=== PATIENT | male | born 1935 | race Caucasian/White ===

== ENCOUNTER → 2017-07-12 | Outpatient (CLI) | payer MEDICARE, OTHER | END | disposition home or self-care (01) | LOC: US 15:26 | DX: I73.9 Peripheral vascular disease, unspecified (principal) | CPT/HCPCS: 93925 ==

== ENCOUNTER → 2017-09-26 | Outpatient (CLI) | payer MEDICARE, OTHER | END | disposition home or self-care (01) | LOC: MRI 11:24 | DX: M43.06 Spondylolysis, lumbar region (principal); M48.061 Spinal stenosis, lumbar region without neurogenic claudication; M51.36 Other intervertebral disc degeneration, lumbar region; M79.2 Neuralgia and neuritis, unspecified; M99.83 Other biomechanical lesions of lumbar region; M79.604 Pain in right leg; M79.605 Pain in left leg; M25.48 Effusion, other site | CPT/HCPCS: 72148 ==

== ENCOUNTER → 2019-05-19 | Outpatient (CLI) | payer MEDICARE, OTHER ==
[~2019-05-19] MED LIST: ATEN50TA PO; DILT180C2 PO; LEVO25TA4 PO; LOSA100T14 PO
--- NOTE | 2019-05-19 17:06 | KCIC ---
MRI of the lumbar spine without contrast 05/19/2019 CLINICAL HISTORY: Low back pain with progressing bilateral leg pain, right greater than left. TECHNIQUE: Unenhanced T1-weighted and T2-weighted sagittal and axial and inversion recovery sagittal images of the lumbar spine were obtained. FINDINGS: Comparison study is dated 09/26/2017. Minimal S-shaped curvature of the thoracolumbar spine is seen. Degenerative signal changes are seen involving all of the disks of the lumbar spine. Degenerative signal changes are seen within the marrow surrounding these discs. The conus medullaris is normal morphology, position, and signal characteristics. At the L1-2 disc space there is a mild to moderate generalized disc bulge. This is eccentric to the right. Degenerative changes are seen involving the facet joints bilaterally. There are small facet joint effusions bilaterally. There is mild to moderate ligamentum flavum hypertrophy bilaterally. There is prominence of the posterior epidural fat. These findings when combined result in mild central spinal canal stenosis. No neural foraminal stenosis is seen. At the L2-3 disc space there is a mild to moderate generalized disc bulge. This is eccentric to the left. Degenerative changes are seen involving the facet joints bilaterally. There is moderate ligamentum flavum hypertrophy bilaterally. There is a small to moderate-sized facet joint effusion. These findings when combined result in mild to moderate central spinal canal stenosis. No neural foraminal stenosis is seen. At the L3-4 disc space there is a moderate generalized disc bulge. Degenerative changes are seen involving the facet joints bilaterally. There is moderate ligamentum flavum hypertrophy bilaterally. There are small facet joint effusions bilaterally. These findings when combined result in moderate central spinal canal stenosis. No neural foraminal stenosis is seen. At the L4-5 disc space there is a mild to moderate generalized disc bulge which is eccentric to the left. Degenerative changes are seen involving the facet joints bilaterally. There is moderate ligamentum flavum hypertrophy bilaterally. These findings when combined result in mild to moderate left greater than right central spinal canal stenosis. No neural foraminal stenosis is seen. At the L5-S1 disc space there is a mild generalized disc bulge. Degenerative changes are seen involving the facet joints bilaterally. There is mild ligamentum flavum hypertrophy bilaterally. These findings when combined do not result in significant central spinal canal or neural foraminal stenosis. The degenerative changes have progressed since the previous examination. IMPRESSION: The changes of degenerative disc disease are seen throughout the lumbar spine. These findings result in mild central spinal canal stenosis at L1-2, mild to moderate central spinal canal stenosis at L2-3, moderate central spinal canal stenosis at L3-4 and mild to moderate left greater than right central spinal canal stenosis at L4-5. Electronically signed by: Imtiaz Fulton MD (05/19/2019 5:03 PM) [facility]
== END | disposition home or self-care (01) ==
LOC: KCIC MRI 15:02
PROVIDERS: ATTEND Family Medicine
DX: M47.816 Spondylosis without myelopathy or radiculopathy, lumbar region (principal); M51.26 Other intervertebral disc displacement, lumbar region; M48.061 Spinal stenosis, lumbar region without neurogenic claudication; M43.8X5 Other specified deforming dorsopathies, thoracolumbar region; M51.36 Other intervertebral disc degeneration, lumbar region
CPT/HCPCS: 72148

== ENCOUNTER → 2019-06-11 | Outpatient (CLI) | payer MEDICARE, OTHER ==
[~2019-06-11] MED LIST changes: +GABA-585 PO; +IOHEXOL 180 MG/ML 10 ML VIAL. ONE; +methylPREDNISolone ACETATE 40 MG/ML VIAL. ONE; +methylPREDNISolone ACETATE 80 MG/ML VIAL. ONE
--- NOTE | 2019-06-11 13:51 | PAIN ---
DATE OF SERVICE: 06/11/2019 INITIAL CONSULTATION FOR PAIN CLINIC CHIEF COMPLAINT: Low back and bilateral lower extremity pain. HISTORY OF PRESENT ILLNESS: This is an 83-year-old male who presents with history of pain for about 6 months, not a result of any specific injury or action. He is aware of pain in the low back, bilateral lower extremities, posterior gluteus, posterior thighs, posterior calves, lateral thighs, anterior thighs, medial thighs, medial lower legs as well to the ankles bilaterally. The patient reports it is essentially equal but right slightly worse than the left. No specific injury or action he is aware of. The patient describes the pain as shooting in the low back into the lower extremities, changes during the day with activity, worse with walking, standing, changing positions, better with sitting or lying down, but does awaken him from sleep about 3 times at night. The patient reports it as cramping as well in the back. The patient reports it does not affect his bowel or bladder control and does not affect his ability to walk significantly, but lying down is his chief complaint when it is disturbing his sleep. The patient reports he generally sleeps on his right side but he has been unable to because of the pain in the right hips and legs. The patient describes his disability rating from 0-10, 10 being the worst, of a 4 with family home responsibilities, social activity, recreation, occupation, and 0 with sexual behavior, self-care and life support activities. The patient has not had any formal therapy at this time. He is doing some stretching on his own, but no formal physical therapy currently. No chiropractic treatments or other modalities recently. The patient is taking [id number] Advil, which helps by only about 20%. The patient did have MRI scan through his primary physician of the lumbar spine showing degenerative disk disease throughout the lumbar spine with mild central spinal canal stenosis at L1-L2, juwn-cz-[id number] central stenosis at L2-L3, moderate central spinal stenosis at L3-L4 and qlie-oh-qitfnbxf left greater than right central spinal canal stenosis at L4-L5. The patient reports no loss of motor function, but significant fatigability in both the lower extremities, especially with standing or walking more than 10-15 minutes. PAST MEDICAL HISTORY: Significant for arthritis and cigarette smoking, which he quit 25 years ago. Otherwise, been in fairly good health. PREVIOUS SURGERY: Include appendectomy and tonsillectomy. CURRENT MEDICATIONS: Well documented on the patient's chart. ALLERGIES: The patient has no known drug allergies. FAMILY HISTORY: Significant for no major medical problems or conditions that he lists. SOCIAL HISTORY: The patient does not drink alcohol, does not smoke, quit many years ago. Denies any illegal, illicit or recreational drugs. Single , lives locally in [place], [place]. Currently he is retired. REVIEW OF SYSTEMS: The patient's review of systems is positive for those items mentioned in history of present illness. All systems reviewed and otherwise negative. It is complete, full and well documented on the patient's chart. PHYSICAL EXAMINATION: VITAL SIGNS: The patient's blood pressure 136/59, pulse 59, respirations 18, temperature is 97.9 degrees Fahrenheit, height is 6 feet 5 inches, weight is 218 pounds. GENERAL: The patient is awake, alert, oriented, appropriate, very pleasant demeanor. HEENT: Shows normocephalic, atraumatic. Extraocular movements are intact and symmetrical. Oral cavity, mucous membranes moist and pink. Dentition is intact. NECK: Shows anterior throat supple without palpable lymphadenopathy noted. Swallow reflex symmetrical. CHEST: Shows normal on inspection. Breath sounds are clear bilaterally. HEART: Shows S1, S2 clear. No murmurs auscultated. ABDOMEN: Soft, nontender, nondistended. No palpable organomegaly is noted. No rebound or guarding demonstrated. BACK: Shows spine grossly in the midline. Normal appearing thoracic kyphosis and minor flattening of lumbar lordotic curvature. Lumbar paraspinous muscle shows symmetrical on inspection, with palpation shows some mild tenderness throughout the upper, middle and lower distribution of paraspinous muscles, but only mildly without atrophy, hypertrophy, no trigger points, no asymmetry, no atrophy or hypertrophy. The patient shows no tenderness over the spinous processes, sacrum or sacroiliac regions bilaterally. The patient has full rotational motion of lumbar spine, both laterally greater than 10 degrees right and left as well as extension greater than 10 degrees, forward flexion 45 degrees without significant pain reported. LOWER EXTREMITIES: Deep tendon reflexes at 1+/4 in the patellar and tendo calcaneus tendons are equal. Motor exam is approximately 4 on a scale of 5, but symmetrical with dorsiflexion, extension, quadriceps and hamstring flexion, right and left. Straight leg raising noted to be negative for reproduction of radicular symptoms bilaterally. Gaenslen's and Twan's maneuvers are negative bilaterally as well. Peripheral pulses are 1+ posterior tibia. No peripheral edema is noted bilaterally. The patient is able to stand, stand on his toes without significant difficulty or loss of balance, walks with a normal-appearing gait, does not appear to favor the right or left lower extremity significantly. SKIN: The patient's skin shows warm and dry, good turgor. No edema. No sores, rashes or bruising throughout. IMPRESSION: 1. This is an 83-year-old male with approximate 6-month history of increasing pain, low back, bilateral lower extremities in a radicular fashion. 2. MRI scan of lumbar spine as noted. 3. Arthritis. PLAN: Options were discussed with the patient including conservative medical managements, physical therapies and interventional techniques. He would like to pursue interventional techniques. We discussed a lumbar epidural steroid injection using description as well as anatomical models to describe the procedure. Risks were then discussed including, but not limited to bleeding, infection, possibility of epidural hematoma, subsequent neurological compromise, dural puncture, headaches, spinal cord and/or nerve damage, side effects of steroid medication and poor results regarding pain control. The patient understands and wished to proceed. The patient will return to clinic in approximately 2 weeks for followup. He was counseled as to return appointment, activity level and side effects to be aware of. DIAGNOSES: Lumbar radiculopathy with lumbar degenerative disk disease and lumbar spinal stenosis. PROCEDURE: Lumbar epidural steroid injection, translaminar approach at L4-L5 level using C-arm fluoroscopic guidance under sterile prep and drape using local anesthetic. MEDICATION INJECTED: A total of 120 mg Depo-Medrol plus 10 mL of preservative-free normal saline and 2 mL of contrast. CONDITION AT DISCHARGE: Stable. The patient tolerated procedure well, had no complications. ANDRES BETTS MD DR: EDWAR/emile JOB#: [id number] / [id number] MELODY Clemente MD
== END | disposition home or self-care (01) ==
LOC: PNCL 09:49
PROVIDERS: ATTEND Anesthesiology
DX: M51.16 Intervertebral disc disorders with radiculopathy, lumbar region (principal); M48.061 Spinal stenosis, lumbar region without neurogenic claudication; M19.90 Unspecified osteoarthritis, unspecified site; Z90.49 Acquired absence of other specified parts of digestive tract; Z98.890 Other specified postprocedural states; Z87.891 Personal history of nicotine dependence
CPT/HCPCS: 62323; J1030; J1040; Q9965

== ENCOUNTER → 2019-06-25 | Outpatient (CLI) | payer MEDICARE, OTHER ==
[~2019-06-25] MED LIST changes: -IOHEXOL 180 MG/ML 10 ML VIAL. ONE; -methylPREDNISolone ACETATE 40 MG/ML VIAL. ONE; -methylPREDNISolone ACETATE 80 MG/ML VIAL. ONE
--- NOTE | 2019-06-25 13:07 | PAIN ---
DATE OF SERVICE: 06/25/2019 PROGRESS NOTE FOR PAIN CLINIC DIAGNOSES: Lumbar radiculopathy with lumbar degenerative disk disease and lumbar spinal stenosis. HISTORY OF PRESENT ILLNESS: The patient is an 83-year-old male who returns for followup status post lumbar epidural steroid injection x 1. The patient reports about 90% improvement in the low back and bilateral lower extremities. The patient reports it is currently still at that level. The patient reports he has been increasing his activity with greater ease and comfort, doing greater distance walking, traveling with greater ease and comfort, doing household activities with greater ease. The patient reports he is very pleased with his progress, sleeping well at night, which was a big problem with him in the past with his legs hurting, but they are no longer keeping him from sleep. The patient reports he is sleeping 7-8 hours at night, does not awaken him from sleep. He is very pleased with his progress. The patient reports no new motor or sensory deficits, no new changes. The patient reports this pain is a 3 on a scale of 10 at its worst, 1 on average and 1 at its least and is a 1 today. The patient reports some aching and dull pain in the low back, only shooting occasionally in the lower extremities bilaterally, but very minimal overall. The patient reports no new motor or sensory deficits, no bowel or bladder incontinence or other complaints. PHYSICAL EXAMINATION: VITAL SIGNS: The patient's blood pressure 171/77, pulse 57, respirations 16, temperature 98.0 degrees Fahrenheit. GENERAL: The patient is awake, alert, oriented, appropriate, very pleasant demeanor. HEENT: Shows normocephalic, atraumatic. Extraocular movements are intact and symmetrical. Oral cavity: Mucous membranes moist and pink. NECK: Shows anterior throat supple without palpable lymphadenopathy noted. Swallow reflex symmetrical. CHEST: Shows normal on inspection. Breath sounds are clear bilaterally. HEART: Shows S1, S2 clear. ABDOMEN: Soft, nontender, nondistended. BACK: Shows spine grossly in the midline. There is a normal-appearing thoracic kyphosis, some minor flattening of lumbar lordotic curvature. Lumbar paraspinous muscle shows symmetrical on inspection, on palpation shows some moderate tenderness diffusely bilaterally, but only diffusely without significant radiation. The patient's back shows good rotational motion both laterally as well as extension and flexion without significant increase in pain. EXTREMITIES: Lower extremities show deep tendon reflexes at 1+ in the patellar and tendo calcaneus tendons are equal. Motor exam is strong with approximately 4 on a scale of 5, but symmetrical dorsiflexion, extension, quadriceps and hamstring flexion. Peripheral pulses are 1+ posterior tibia. No peripheral edema is noted. Options were discussed with the patient. The patient's old chart was reviewed as his current medication regimen updated. Current review of systems updated today as well. We will hold on any further injections at this time as the patient is doing quite a better. I would like to wait and see how he does. He would like to hold on any further injections. The patient was encouraged to increase activity as tolerated and will have him follow up at this time on as needed basis. ANDRES BETTS MD DR: EDWAR/emile JOB#: [id number] / [id number]
== END ==
LOC: PNCL 10:32
PROVIDERS: ATTEND Anesthesiology
DX: M51.16 Intervertebral disc disorders with radiculopathy, lumbar region (principal); M48.061 Spinal stenosis, lumbar region without neurogenic claudication
CPT/HCPCS: G0463

== ENCOUNTER 2021-10-12 16:04 | Inpatient (IN) | payer MEDICARE, OTHER ==
[2021-10-12] VITALS (9 sets, daily range): BP systolic 112–182; BP diastolic 46–76
[~2021-10-12] VITALS: Ht 193 cm; Wt 83.0 kg
--- NOTE | 2021-10-12 16:09 | PHYS DOC ---
General Adult HPI: HPI: Patient is an 86 year old male brought in by private vehicle with his granddaughter for report of 3 days of intermittent dizziness and dyspnea. He reports some generalized fatigue. He denies chest pain. He denies fall, head injury or syncope. He denies abdominal pain, nausea, vomiting or diarrhea. No previous similar symptoms. His granddaughter convinced him to go seek care at his primary care doctor's office today, he was seen by the PA at Dr. Mejias's office, an EKG was performed which was abnormal and changed from his baseline. He was sent by private vehicle with his granddaughter. On arrival here, his EKG demonstrates ST elevation in the inferior and lateral leads. The patient has no known history of cardiac issues. He reportedly has a history of hypothyroidism and takes levothyroxine. He has not previously seen a laboratory coordinator. Review of Systems: Review of Systems: Constitutional: Denies fever or chills. [] HENT: Denies nasal congestion or sore throat. [] Respiratory: He does report dyspnea. Denies cough or hemoptysis. Cardiovascular: Denies chest pain or palpitations. Denies syncope. GI: Denies abdominal pain, nausea, vomiting Musculoskeletal: Denies back pain or joint pain. [] Integument: Denies rash. [] Neurologic: Denies headache, focal weakness or sensory changes. He reports dizziness, denies syncope, head injury or fall. Psychiatric: Denies depression or anxiety. [] Heart Score: C/O Chest Pain: No HEART Score for Chest Pain: HEART Score for Chest Pain Response (Comments) Value History Highly Suspicious [address] Depression 2 Age > 65 2 Risk Factors 1 or 2 Risk Factors 1 Troponin >3 x Normal Limit 2 Total 9 Risk Factors: Risk Factors: DM, Current or recent (<one month) smoker, HTN, HLP, family history of CAD, obesity. Risk Scores: Score 0 - 3: 2.5% MACE over next 6 weeks - Discharge Home Score 4 - 6: 20.3% MACE over next 6 weeks - Admit for Clinical Observation Score 7 - 10: 72.7% MACE over next 6 weeks - Early Invasive Strategies Allergies: Allergies: Allergies Coded Allergies Type Severity Reaction Last Updated Verified No Known Drug Allergies 11/16/15 No Physical Exam: PE: Constitutional: Well developed, well nourished, no acute distress, non-toxic appearance. [] HENT: Normocephalic, atraumatic, no facial or oral trauma noted. Mucous membranes are moist Eyes: Conjunctiva normal, no discharge. [] Neck: Normal range of motion, no tenderness, supple, no stridor. Trachea is midline. No JVD. Cardiovascular:Heart rate regular rhythm, was 2 radial and +2 posterior tibial pulses bilaterally. Lungs & Thorax: Bilateral breath sounds clear to auscultation, tachypnea, no rales, rhonchi or wheezes. No respiratory distress Abdomen: Abdomen is soft, nondistended, nontender to palpation. No palpable masses, no palpable pulsatile mass, no evidence of trauma. Skin: Warm, dry, no erythema, no rash. [] Back: Full range of motion Extremities: No tenderness, no cyanosis, no clubbing, ROM intact, 1+ bilateral, symmetric lower extremity edema. No calf tenderness Neurologic: Alert and oriented X 3, normal motor function, normal sensory function, no focal deficits noted. [] Psychologic: Affect normal, judgement normal, mood normal. He is pleasant and cooperative. EKG: EKG: EKG is interpreted at 1614 Rhythm is sinus Rate is 72 bpm Elberta is left STEMI noted--ST elevation II, III, aVF, V6 Radiology/Procedures: Radiology/Procedures: IMAGING REPORT Signed PATIENT: BART PHELAN ACCOUNT: [id number] : 1935 LOCATION: ER AGE: 86 SEX: M EXAM STATUS: REG ER ORD. PHYSICIAN: KELLI ODELL DO REASON: dyspnea PROCEDURE: PORTABLE CHEST 1V XR CHEST 1V 10/12/2021 4:32 PM INDICATION: Dyspnea COMPARISON: None available TECHNIQUE: Portable frontal view of the chest is provided. FINDINGS: The cardiomediastinal silhouette is within normal limits. Lungs are clear. There are no significant pleural effusions. There is no pulmonary vascular congestion. No pneumothorax. Eccentric pacer leads are identified along the ventral chest. No suspicious osseous abnormality. IMPRESSION: There is no acute cardiopulmonary process. Electronically signed by: Brice Elias MD (10/12/2021 4:44 PM) [facility] DICTATED and SIGNED BY: BRICE ELIAS MD DATE: 10/12/21 1643 Course & Med Decision Making: Course & Med Decision Making Pertinent Labs and Imaging studies reviewed. (See chart for details) I contacted Dr. Tran of cardiology. EKG findings concerning for inferolateral ST elevation CA. Oral aspirin is ordered. IV heparin boluses ordered. Dr. Tran came to the patient's bedside, agreed with the plan to proceed with [facility] Supervisor and treatment of ST elevation CA. I discussed the findings and plan of care with the patient and his granddaughter. He is comfortable with the plan for admission. I spoke with Dr. Mejias, the patient's primary care physician, informed him of all of the details of the patient's ED course, presentation, laboratory exams, vital signs, and the plan for proceeding to the [facility] with cardiology. He accepts the patient for admission. Dragon Disclaimer: Dragon Disclaimer: This electronic medical record was generated, in whole or in part, using a voice recognition dictation system. Departure Departure Impression: Primary Impression: ST elevation CA (STEMI) Qualified Codes: I21.3 - ST elevation (STEMI) myocardial infarction of unspecified site Disposition: ADMITTED INPATIENT Admitting Physician: Melody Mejias Condition: GUARDED Referrals: MELODY MEJIAS MD (PCP) KELLI ODELL DO Oct 12, 2021 16:09
[2021-10-12] MEDS ORDERED: HEPARIN for IV BOLUS 10,000 UNIT/10 ML VIAL. ONE (16:27)
[2021-10-12 16:30] LABS: BASO # 0.1 x10^3/uL (0.0-0.2); BASO % 2 % (0-3); EOS # 0.1 x10^3/uL (0.0-0.7); EOS % 1 % (0-3); HEMATOCRIT 44.8 % (39.0-53.0); HEMOGLOBIN 15.1 g/dL (13.0-17.5); LYMPH # 1.9 x10^3/uL (1.0-4.8); LYMPH % 24 % (24-48); MEAN CORPUSCULAR HEMOGLOBIN 29 pg (25-35); MEAN CORPUSCULAR HGB CONC 34 g/dL (31-37); MEAN CORPUSCULAR VOLUME 86 fL (79-100); MONO # 0.9 x10^3/uL (0.0-1.1); MONO % 12 % (0-9); NEUT # 4.9 x10^3/uL (1.8-7.7); NEUT % 62 % (31-73); PLATELET COUNT 179 x10^3/uL (140-400); RED BLOOD COUNT 5.24 x10^6/uL (4.30-5.70); RED CELL DISTRIBUTION WIDTH 14.2 % (11.5-14.5); WHITE BLOOD COUNT 7.9 x10^3/uL (4.0-11.0)
[2021-10-12] MEDS ORDERED: ASPIRIN CHEWABLE 81 MG TABLET. PO ONE (16:30)
[2021-10-12] MEDS ORDERED: HEPARIN for IV BOLUS 10,000 UNIT/10 ML VIAL. IV ONE (16:30)
[2021-10-12] MEDS ORDERED: MIDAZOLAM HCL/PF 2 MG/2 ML VIAL. ONE (16:40)
[2021-10-12] MEDS ORDERED: fentaNYL PF VIAL 100 MCG/2 ML VIAL ONE (16:40)
--- NOTE | 2021-10-12 16:46 | RAD ---
XR CHEST 1V 10/12/2021 4:32 PM INDICATION: Dyspnea COMPARISON: None available TECHNIQUE: Portable frontal view of the chest is provided. FINDINGS: The cardiomediastinal silhouette is within normal limits. Lungs are clear. There are no significant pleural effusions. There is no pulmonary vascular congestion. No pneumothora x. Eccentric pacer leads are identified along the ventral chest. No suspicious osseous abnormality. IMPRESSION: There is no acute cardiopulmonary process. Electronically signed by: Matilda Varner MD (10/12/2021 4:44 PM) [facility]
[2021-10-12 16:52] LABS: CREATININE 1.7 mg/dL (0.7-1.3); GFR 38.5; POTASSIUM 3.9 mmol/L (3.5-5.1)
[2021-10-12] MEDS ORDERED: LIDOCAINE 1% Multi-Dose 20 ML VIAL. ONE (16:52)
[2021-10-12] MEDS ORDERED: IODIXANOL 320 MG/ML 100 ML VIAL. ONE ×2 (16:52→17:29)
[2021-10-12 16:58] LABS: ALBUMIN 3.8 g/dL (3.4-5.0); ALBUMIN/GLOBULIN RATIO 0.9 (1.0-1.7); MAGNESIUM 2.1 mg/dL (1.8-2.4); TOTAL BILIRUBIN 1.6 mg/dL (0.2-1.0)
--- NOTE | 2021-10-12 17:04 | PDOC2 ---
CONSULT Date of Consult Date of Consult DATE: 10/12/21 TIME: 17:04 Reason for Consult Reason for Consult: Acute STEMI Referring Physician Referring Physician: Dr. Patel Identification/Chief Complaint Chief Complaint Shortness of breath Source Source: Patient History of Present Illness Reason for Visit: 86-year-old male presented with 2 to 3-day history of intermittent episodes of dyspnea, worse with exertion and associated with dizziness. He denied any chest pain as such. He also denied any orthopnea/PND, palpitations or syncope. He was seen in our office last year for an episode of near syncope and bradycardia that improved after stopping beta-blockers. Event monitor recording did not show any significant bradycardia or pauses. EKG showed inferolateral ST elevations prompting activation of code STEMI. Past Medical History Past Medical History Hypothyroidism Chronic kidney disease Hypertension Past Surgical History Past Surgical History Appendectomy Family History Family History Not contributory due to his advanced age Social History Social History Patient denied any smoking, alcohol or drug use Current Problem List Problem List Problems Medical Problems: (1) ST elevation SC (STEMI) Status: Acute Current Medications Current Medications Current Medications Aspirin (Aspirin Chewable) 324 mg 1X ONCE PO Last administered on 10/12/21at 16:27; Start 10/12/21 at 16:30; Stop 10/12/21 at 16:31; Status DC Heparin Sodium (Porcine) (Heparin Sodium) 4,000 unit 1X ONCE IV Last administered on 10/12/21at 16:32; Start 10/12/21 at 16:30; Stop 10/12/21 at 16:31; Status DC Heparin Sodium (Porcine) (Heparin Sodium) 10,000 unit STK-MED ONCE .ROUTE ; Start 10/12/21 at 16:27; Stop 10/12/21 at 16:28; Status DC Fentanyl Citrate (Fentanyl 2ml Vial) 100 mcg STK-MED ONCE .ROUTE ; Start at 16:40; Stop 10/12/21 at 16:40; Status DC Midazolam HCl (Versed) 2 mg STK-MED ONCE .ROUTE ; Start 10/12/21 at 16:40; Stop 10/12/21 at 16:41; Status DC Iodixanol (Visipaque 320) 100 ml STK-MED ONCE .ROUTE ; Start 10/12/21 at 16:52; Stop 10/12/21 at 16:53; Status DC Lidocaine HCl (Lidocaine 1% 20ml Vial) 20 ml STK-MED ONCE .ROUTE ; Start 10/12/21 at 16:52; Stop 10/12/21 at 16:53; Status DC Heparin Sodium/ Sodium Chloride 1,000 ml @ As Directed STK-MED ONCE .ROUTE ; Start 10/12/21 at 16:53; Stop 10/12/21 at 16:53; Status DC Active Scripts Active Reported Gabapentin (Gabapentin) 100 Mg Capsule 200 Mg PO HS Levothyroxine Sodium 25 Mcg Tablet 1 Tab PO Allergies Allergies: Coded Allergies: No Known Drug Allergies (Unverified , 10/12/21) ROS PSYCHOLOGICAL ROS: No: Hallucinations Eyes: No Loss of vision HEENT: No: Epistaxis Respiratory: YES: Shortness of breath; No: Hemoptysis Cardiovascular: No Chest Pain Gastrointestinal: No Vomiting, No Diarrhea Genitourinary: No Hematuria Neurological: Yes Dizziness; No Seizures Skin: No Rash Physical Exam General: Alert, Oriented X3 HEENT: Atraumatic Lungs: Clear to auscultation Heart: Regular rate Abdomen: Soft Extremities: No edema Neuro: Normal speech Psych/Mental Status: Mood NL Vitals VITALS Vital Signs Date Time Temp Pulse Resp B/P (MAP) Pulse Ox O2 Delivery O2 Flow Rate FiO2 10/12/21 16:52 83 21 164/72 (102) 100 Room Air 10/12/21 16:05 97.8 97.8 Labs Labs Laboratory Tests Test 10/12/21 16:20 White Blood Count 7.9 x10^3/uL (4.0-11.0) Red Blood Count 5.24 x10^6/uL (4.30-5.70) Hemoglobin 15.1 g/dL (13.0-17.5) Hematocrit 44.8 % (39.0-53.0) Mean Corpuscular Volume 86 fL (79-100) Mean Corpuscular Hemoglobin 29 pg (25-35) Mean Corpuscular Hemoglobin Concent 34 g/dL (31-37) Red Cell Distribution Width 14.2 % (11.5-14.5) Platelet Count 179 x10^3/uL (140-400) Neutrophils (%) (Auto) 62 % (31-73) Lymphocytes (%) (Auto) 24 % (24-48) Monocytes (%) (Auto) 12 % (0-9) Eosinophils (%) (Auto) 1 % (0-3) Basophils (%) (Auto) 2 % (0-3) Neutrophils # (Auto) 4.9 x10^3/uL (1.8-7.7) Lymphocytes # (Auto) 1.9 x10^3/uL (1.0-4.8) Monocytes # (Auto) 0.9 x10^3/uL (0.0-1.1) Eosinophils # (Auto) 0.1 x10^3/uL (0.0-0.7) Basophils # (Auto) 0.1 x10^3/uL (0.0-0.2) Sodium Level 135 mmol/L (136-145) Potassium Level 3.9 mmol/L (3.5-5.1) Chloride Level 99 mmol/L (98-107) Carbon Dioxide Level 29 mmol/L (21-32) Anion Gap 7 (6-14) Blood Urea Nitrogen 23 mg/dL (8-26) Creatinine 1.7 mg/dL (0.7-1.3) Estimated GFR (Cockcroft-Gault) 38.5 BUN/Creatinine Ratio 14 (6-20) Glucose Level 109 mg/dL (70-99) Calcium Level 9.0 mg/dL (8.5-10.1) Magnesium Level 2.1 mg/dL (1.8-2.4) Total Bilirubin 1.6 mg/dL (0.2-1.0) Aspartate Amino Transf (AST/SGOT) 73 U/L (15-37) Alanine Aminotransferase (ALT/SGPT) 16 U/L (16-63) Alkaline Phosphatase 110 U/L (46-116) Troponin I High Sensitivity 29082 ng/L (4-75) TK-Znn-D-Type Natriuretic Peptide 81322 pg/mL (0-449) Total Protein 8.0 g/dL (6.4-8.2) Albumin 3.8 g/dL (3.4-5.0) Albumin/Globulin Ratio 0.9 (1.0-1.7) Lipase 37 U/L (73-393) Laboratory Tests Test 10/12/21 16:20 White Blood Count 7.9 x10^3/uL (4.0-11.0) Red Blood Count 5.24 x10^6/uL (4.30-5.70) Hemoglobin 15.1 g/dL (13.0-17.5) Hematocrit 44.8 % (39.0-53.0) Mean Corpuscular Volume 86 fL (79-100) Mean Corpuscular Hemoglobin 29 pg (25-35) Mean Corpuscular Hemoglobin Concent 34 g/dL (31-37) Red Cell Distribution Width 14.2 % (11.5-14.5) Platelet Count 179 x10^3/uL (140-400) Neutrophils (%) (Auto) 62 % (31-73) Lymphocytes (%) (Auto) 24 % (24-48) Monocytes (%) (Auto) 12 % (0-9) Eosinophils (%) (Auto) 1 % (0-3) Basophils (%) (Auto) 2 % (0-3) Neutrophils # (Auto) 4.9 x10^3/uL (1.8-7.7) Lymphocytes # (Auto) 1.9 x10^3/uL (1.0-4.8) Monocytes # (Auto) 0.9 x10^3/uL (0.0-1.1) Eosinophils # (Auto) 0.1 x10^3/uL (0.0-0.7) Basophils # (Auto) 0.1 x10^3/uL (0.0-0.2) Sodium Level 135 mmol/L (136-145) Potassium Level 3.9 mmol/L (3.5-5.1) Chloride Level 99 mmol/L (98-107) Carbon Dioxide Level 29 mmol/L (21-32) Anion Gap 7 (6-14) Blood Urea Nitrogen 23 mg/dL (8-26) Creatinine 1.7 mg/dL (0.7-1.3) Estimated GFR (Cockcroft-Gault) 38.5 BUN/Creatinine Ratio 14 (6-20) Glucose Level 109 mg/dL (70-99) Calcium Level 9.0 mg/dL (8.5-10.1) Magnesium Level 2.1 mg/dL (1.8-2.4) Total Bilirubin 1.6 mg/dL (0.2-1.0) Aspartate Amino Transf (AST/SGOT) 73 U/L (15-37) Alanine Aminotransferase (ALT/SGPT) 16 U/L (16-63) Alkaline Phosphatase 110 U/L (46-116) Troponin I High Sensitivity 32861 ng/L (4-75) ZZ-Jle-N-Type Natriuretic Peptide 69398 pg/mL (0-449) Total Protein 8.0 g/dL (6.4-8.2) Albumin 3.8 g/dL (3.4-5.0) Albumin/Globulin Ratio 0.9 (1.0-1.7) Lipase 37 U/L (73-393) Assessment/Plan Assessment/Plan 1. Acute inferolateral wall ST elevation myocardial infarction with probably la te presentation based on significantly elevated initial troponin level of greater than 16 K. He was chest pain-free on admission but continued to have ST elevations on EKG. 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 He underwent successful PCI/drug-eluting stent placement. Distal flow was consistent with late presentation. He also had borderline significant stenosis of his right coronary artery that was physiologically insignificant based on IFR measurement. Continue DAPT and monitor closely for arrhythmias. We will initiate statin therapy. Check 2D echo to assess LV systolic function. 2. Hypertension: Patient currently has borderline low blood pressure despite being off antihypertensives. 3. Chronic kidney disease: Monitor BUN/creatinine closely 4. Hypothyroidism: Continue levothyroxine Thank you for your consultation Total critical care time spent evaluating and managing patient 45 mins ANNIE MARIE MD Oct 12, 2021 17:04
--- NOTE | 2021-10-12 17:04 | PDOC ---
MODERATE SEDATION ASSESSMENT RISKS/ALTERNATIVES Risks/Alternatives Risks and alternatives of this type of sedation and procedure discussed with: RISK/ALTERNATIVES: Patient H & P ON CHART H & P H & P on chart and reviewed for co-morbid conditions and appropriate labs. H&P ON CHART: Yes STATUS PREG STATUS ASSESSED: N/A MEDS/ALLERGIES REVIEWED Meds/Allergies Reviewed Medications and Allergies including time and route of recently administered narcotics and sedatives. MEDS/ALLERGIES REVIEWED: Yes ASA RATING ASA RATING: II AIRWAY ASSESSMENT Airway Assessment Airway patency, oral function limitations, presence of caps, crowns, dentures, partials, and ability to extend neck assessed. AIRWAY ASSESSMENT: Yes MALLAMPATI SCORE MALLAMPATI SCORE: II PRE-SEDATION ASSESSMENT PRE-SEDATION ASSESSMENT: Yes ANNIE MARIE MD Oct 12, 2021 17:04
[2021-10-12] MEDS ORDERED: BIVALIRUDIN 250 MG VIAL. IV ONE ×4 (17:11→17:30)
[2021-10-12] MEDS ORDERED: NITROGLYCERIN 200 MCG/2 ML SYRINGE FOR CATH/VASC LAB. ONE ×2 (17:23→17:31)
[2021-10-12] MEDS ORDERED: MIDAZOLAM HCL/PF 2 MG/2 ML VIAL. IV ONE (17:30)
[2021-10-12] MEDS ORDERED: fentaNYL PF VIAL 100 MCG/2 ML VIAL IV ONE (17:30)
[2021-10-12] MEDS ORDERED: LIDOCAINE 2% Multi-Dose 20 ML VIAL. IJ ONE (17:30)
[2021-10-12] MEDS ORDERED: NITROGLYCERIN 200 MCG/2 ML SYRINGE FOR CATH/VASC LAB. IART ONE (17:30)
[2021-10-12] MEDS ORDERED: IODIXANOL 320 MG/ML 100 ML VIAL. IART ONE (17:30)
[2021-10-12] MEDS ORDERED: CONTRAST GIVEN. MC PRN (17:45)
[2021-10-12] MEDS ORDERED: CLOPIDOGREL BISULFATE 75 MG TABLET ONE (17:59)
[2021-10-12] MEDS: CARVEDILOL 6.25 MG TABLET. PO SCH (18:00)
[2021-10-12] MEDS ORDERED: ACETAMINOPHEN 325 MG TABLET. PO PRN (18:00)
[2021-10-12] MEDS ORDERED: NITROGLYCERIN SUBLINGUAL 0.4 MG BOTTLE OF 25. SL PRN (18:00)
--- NOTE | 2021-10-12 18:24 | NUR ---
Patient taken from Web [facility]ducer to 107. VS stable, no chest pain. Family in waiting room. All belongings with patient's family.
[2021-10-12] MEDS ORDERED: CLOPIDOGREL BISULFATE 75 MG TABLET PO ONE (18:30)
[2021-10-12] MEDS ORDERED: ATORVASTATIN CALCIUM 20 MG TABLET PO SCH (21:00)
[2021-10-13] VITALS (24 sets, daily range): BP systolic 80–141; BP diastolic 38–68
[2021-10-13 02:48] LABS: BACTERIA,URINE 0 /HPF (0-FEW); RBC,URINE RARE /HPF (0-2); WBC,URINE 0 /HPF (0-4)
[2021-10-13] MEDS: IV 1/2 NORMAL SALINE 1,000 ML IV SCH ×2 (06:43→14:00)
--- NOTE | 2021-10-13 07:23 | EKG ---
[facility] [address] [place] [address] Test Date: 2021-10-12 Test Time: 16:13:43 Pat Name: BART PHELAN Department: Room: [facility] Gender: M Production Team Member: : [id number] Requested By: KELLI ODELL Order Number: [id number] Reading MD: Gerson Tran Measurements Intervals [place] Rate: 72 P: 90 AK: 174 QRS: -39 QRSD: 86 T: 65 QT: 392 QTc: 431 Interpretive Statements SINUS RHYTHM ATRIAL PREMATURE COMPLEX(ES) ABNORMAL LEFT AXIS DEVIATION LOW LIMB LEAD VOLTAGE QRS(T) CONTOUR ABNORMALITY ACUTE INFEROLATERAL WALL STEMI Electronically Signed On 10-15-2021 21:35:28 CDT by Gerson Tran
--- NOTE | 2021-10-13 08:25 | PDOC ---
Provider Note Date of Service: DATE: 10/13/21 TIME: 08:25 Provider Note dictated Justifications for Admission Other Justification MELODY MEJIAS MD Oct 13, 2021 08:25
[2021-10-13] MEDS: ASPIRIN ENTERIC COATED 325 MG TABLET.DR. PO SCH (08:46)
[2021-10-13] MEDS: CLOPIDOGREL BISULFATE 75 MG TABLET PO SCH (08:46)
[2021-10-13] MEDS: CARVEDILOL 6.25 MG TABLET. PO SCH (08:47)
[2021-10-13] MEDS ORDERED: LEVOTHYROXINE 25 MCG TABLET. PO SCH (09:00)
[2021-10-13] MEDS: LEVOTHYROXINE 100 MCG TABLET PO SCH (09:18)
[2021-10-13 09:39] LABS: CALCIUM 8.2 mg/dL (8.5-10.1); CREATININE 1.6 mg/dL (0.7-1.3); GFR 41.3; MAGNESIUM 2.1 mg/dL (1.8-2.4); POTASSIUM 4.2 mmol/L (3.5-5.1)
[2021-10-13 09:48] LABS: CHOLESTEROL/HDL RATIO 2.5
--- NOTE | 2021-10-13 09:55 | HP ---
DATE OF SERVICE: 10/13/2021 ADMIT DATE: 10/12/2021 CHIEF COMPLAINT: Weakness. HISTORY OF PRESENT ILLNESS: An 81-year-old white male, who was seen in our office on the day of admission with 3-day history of generalized weakness without any other specific symptoms including chest pain, shortness of breath, sweating or any other obvious symptoms. He has never had any cardiovascular events before. EKG showed acute ST elevation in the inferior leads and he was sent to the ER and acute STEMI was diagnosed per repeat EKG. He was taken to the cardiac cath lab technologist per Dr. Tran and apparently a circumflex lesion was found and angioplasty and stented it and he is feeling better at this time. He states he felt that his feeling of weakness improved soon after a stent was placed. He has never had any cardiovascular events before and had no exercise symptoms or angina prior to this event. PAST MEDICAL HISTORY: MEDICATIONS: Only levothyroxine. PAST SURGICAL HISTORY: He has had routine surgeries, nothing else unusual. ALLERGIES: No allergies are known. SOCIAL HISTORY: He is . Nonsmoker, nondrinker. Physically active for his age. FAMILY HISTORY: Unremarkable. REVIEW OF SYSTEMS: No other known problems. OBJECTIVE: ENT: All within normal limits. NECK: No masses, nodes or bruits. LUNGS: Clear. CARDIOVASCULAR: Regular rate. No tachycardia or irregular beat. ABDOMEN: Soft, benign, nontender. EXTREMITIES: No edema. No active joint or skin lesions. Pulses distally are good. NEUROLOGIC: Physiologic and nonfocal. LABORATORY DATA: troponin consistent with acute VT. ASSESSMENT: Acute ST elevation myocardial infarction, inferior wall per EKG and circumflex lesion in the cardiac cath lab technologist. He is doing very well medically at this point post-acute. PLAN: TSH, lipid profile. Continue current meds including the addition of a statin. Echocardiogram is pending as well. MONICA/PADMAJA/TERRY DR: Josh TID: [id number]
[2021-10-13] MEDS ORDERED: LEVOTHYROXINE 100 MCG TABLET PO SCH (10:00)
--- NOTE | 2021-10-13 10:04 | NUR ---
SS following for discharge planning. SS reviewed pt chart and discussed with pt RN. Pt is from home and is currently on room air. Cardiology following. SS will continue to follow for discharge planning.
--- NOTE | 2021-10-13 11:57 | PDOC ---
DORYS MAC HOG STOMACH PREPARER 10/13/21 1157: CARDIO Progress Notes Date and Time Date of Service 10/13/2021 Time of Evaluation 1150 Subjective Subjective: No Chest Pain, No shortness of breath, No Palpitations Vitals Vitals Vital Signs Date Time Temp Pulse Resp B/P (MAP) Pulse Ox O2 Delivery O2 Flow Rate FiO2 10/13/21 11:00 77 21 103/42 (62) 100 Nasal Cannula 2.0 10/13/21 07:00 98.2 98.2 Weight Weight [ ] Input and Output Intake and Output Intake and Output 10/13/21 07:00 Intake Total 550 ml Output Total 0 ml Balance 550 ml Intake Oral 550 ml Output Urine Total 0 ml # Voids 8 Laboratory Labs Laboratory Tests Test 10/12/21 16:20 10/12/21 19:30 10/12/21 22:20 10/13/21 02:35 White Blood Count 7.9 x10^3/uL (4.0-11.0) Red Blood Count 5.24 x10^6/uL (4.30-5.70) Hemoglobin 15.1 g/dL (13.0-17.5) Hematocrit 44.8 % (39.0-53.0) Mean Corpuscular Volume 86 fL (79-100) Mean Corpuscular Hemoglobin 29 pg (25-35) Mean Corpuscular Hemoglobin Concent 34 g/dL (31-37) Red Cell Distribution Width 14.2 % (11.5-14.5) Platelet Count 179 x10^3/uL (140-400) Neutrophils (%) (Auto) 62 % (31-73) Lymphocytes (%) (Auto) 24 % (24-48) Monocytes (%) (Auto) 12 % (0-9) Eosinophils (%) (Auto) 1 % (0-3) Basophils (%) (Auto) 2 % (0-3) Neutrophils # (Auto) 4.9 x10^3/uL (1.8-7.7) Lymphocytes # (Auto) 1.9 x10^3/uL (1.0-4.8) Monocytes # (Auto) 0.9 x10^3/uL (0.0-1.1) Eosinophils # (Auto) 0.1 x10^3/uL (0.0-0.7) Basophils # (Auto) 0.1 x10^3/uL (0.0-0.2) Sodium Level 135 mmol/L (136-145) Potassium Level 3.9 mmol/L (3.5-5.1) Chloride Level 99 mmol/L (98-107) Carbon Dioxide Level 29 mmol/L (21-32) Anion Gap 7 (6-14) Blood Urea Nitrogen 23 mg/dL (8-26) Creatinine 1.7 mg/dL (0.7-1.3) Estimated GFR (Cockcroft-Gault) 38.5 BUN/Creatinine Ratio 14 (6-20) Glucose Level 109 mg/dL (70-99) Calcium Level 9.0 mg/dL (8.5-10.1) Magnesium Level 2.1 mg/dL (1.8-2.4) Total Bilirubin 1.6 mg/dL (0.2-1.0) Aspartate Amino Transf (AST/SGOT) 73 U/L (15-37) Alanine Aminotransferase (ALT/SGPT) 16 U/L (16-63) Alkaline Phosphatase 110 U/L (46-116) Troponin I High Sensitivity 20144 ng/L (4-75) 78597 ng/L (4-75) 26112 ng/L (4-75) HF-Jti-Y-Type Natriuretic Peptide 56247 pg/mL (0-449) Total Protein 8.0 g/dL (6.4-8.2) Albumin 3.8 g/dL (3.4-5.0) Albumin/Globulin Ratio 0.9 (1.0-1.7) Lipase 37 U/L (73-393) Urine Collection Type Unknown Urine Color (Auto) Light yellow Urine Turbidity Clear Urine pH (Auto) 6.0 (<5.0-8.0) Urine Specific [place] 1.036 (1.000-1.030) Urine Protein (Auto) Negative mg/dL (Negative) Urine Glucose (Auto)(UA) Negative mg/dL (Negative) Urine Ketones (Auto) Negative mg/dL (Negative) Urine Blood (Auto) Negative (Negative) Urine Nitrite Negative (Negative) Urine Bilirubin (Auto) Negative (Negative) Urine Urobilinogen (Auto) Normal mg/dL (Normal) Urine Leukocyte Esterase (Auto) Negative (Negative) Urine RBC Rare /HPF (0-2) Urine WBC 0 /HPF (0-4) Urine Squamous Epithelial Cells None /LPF Urine Bacteria 0 /HPF (0-FEW) Test 10/13/21 09:15 Sodium Level 136 mmol/L (136-145) Potassium Level 4.2 mmol/L (3.5-5.1) Chloride Level 102 mmol/L (98-107) Carbon Dioxide Level 28 mmol/L (21-32) Anion Gap 6 (6-14) Blood Urea Nitrogen 27 mg/dL (8-26) Creatinine 1.6 mg/dL (0.7-1.3) Estimated GFR (Cockcroft-Gault) 41.3 Glucose Level 101 mg/dL (70-99) Calcium Level 8.2 mg/dL (8.5-10.1) Magnesium Level 2.1 mg/dL (1.8-2.4) Triglycerides Level 52 mg/dL (0-150) Cholesterol Level 117 mg/dL (0-200) LDL Cholesterol, Calculated 61 mg/dL (0-100) VLDL Cholesterol, Calculated 10 mg/dL (0-40) Non-HDL Cholesterol Calculated 71 mg/dL (0-129) HDL Cholesterol 46 mg/dL (40-60) Cholesterol/HDL Ratio 2.5 Thyroid Stimulating Hormone (TSH) 0.474 uIU/mL (0.358-3.74) Physical Exam HEENT: Neck Supple W Full Motion Chest: Symmetric LUNGS: Clear to Auscultation Heart: S1S2, RRR (SR) Abdomen: Soft N/T Extremities: No Edema, No Calf Tenderness Neurology: alert, oriented, follow commands Other Exams right groin arteriotomy site intact, no erythema, swelling or hematoma. Neurovascular status to bilateral LE intact. Assessment Assessment 1. Acute inferolateral wall ST elevation myocardial infarction with probably late presentation based on significantly elevated initial troponin level of greater than 16 K. He was chest pain-free on admission but continued to have ST elevations on EKG. 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 He underwent successful PCI/drug-eluting stent placement. Distal flow was consistent with late presentation. He also had borderline significant stenosis of his right coronary artery that was physiologically insignificant based on IFR measurement. 2. Hypertension: controlled 3. CKD: possibly stage 3 4. Hypothyroidism: on replacement per PCP 5. Presyncope: vasovagal episode. noted HR SB in the 30s resolved after at ropine Recommendations 1. Continue ASA and plavix. Cardiac rehab 2. Statin. DC coreg. Per RN was told he was not able to tolerate metoprolol in the past. 3. TTE today. plan for MCOT 4. Continue IVF x1 Justicifation of Admission Dx: Justifications for Admission: Justification of Admission Dx: Yes ANNIE MARIE MD 10/14/21 0946: CARDIO Progress Notes Assessment Assessment Patient seen and examined 10/13/21. Agree with FLAKER TENDER's assessment and plan as stated above. Near syncope earlier today most prob vasovagal but in lieu of prior history of bradycardia, we will obtain event monitor as outpatient Agree with stopping BB s/p PCI/ABE to LCX, stable. Continue DAPT Possible DC home tomorrow DORYS MAC HOG STOMACH PREPARER Oct 13, 2021 11:57 ANNIE MARIE MD Oct 14, 2021 09:46
--- NOTE | 2021-10-13 13:10 | CARD ---
MR#: [id number] Date of Study: 10/12/2021 Ordering Physician: CORNELIO WINTERS, Referring Physician: CORNELIO WINTERS, Tech: RT Prudencio(R) APPROVED REPORT Technologist: Shauna Abrams RT(R) Nurse: Megan Butler RN Procedure(s) performed: 1. Left heart catheterization, selective coronary angiography 2. Successful PCI/drug-eluting stent placement to the obtuse marginal branch of left circumflex consuelo ry 3. Instantaneous wave free ratio (IFR) measurement to right coronary artery stenosis Fluoro time: 14.9 min Dose: 70 Gycm2 Contrast: 171 ccs Sed Time:57 min INDICATION The indication(s) include : Acute inferolateral wall ST elevation myocardial infarction. [facility] Clinical Frailty Scale [facility] Clinical Frailty Scale: Mildly Frail Heart Failure Heart Failure: No CASE TECHNIQUE IV conscious sedation was used throughout procedure with appropriate monitoring and was performed in the presence of a registered nurse who was an independent trained observer other than the physician p erforming the procedure. During this case, Fluoroscopy and low osmolar contrast were used for imaging . Specimen(s) Removed: No Estimated Blood loss: 15 cc's. PROCEDURE NARRATIVE After explaining the risk, benefits and alternative options, informed consent was obtained from patie nt. Patient was brought to the cardiac Quality Control Expert and his right groin was prepped and draped in the us ual fashion. 10 cc of 2% lidocaine was infiltrated into the skin and subcutaneous tissues for local anesthesia. Arterial access was obtained in the right common femoral artery and a 6 Ethiopian sheath wa s inserted. 6 Ethiopian JL4 6 Ethiopian JR4 catheters were used to perform selective angiography of the le ft and right coronary arteries. LVEDP and transaortic gradients were measured. Since patient had an giographically borderline significant stenosis involving the right coronary artery, a decision was ma de to perform physiologic assessment using instantaneous wave free ratio (IFR) measurement. [facility] t coronary artery was engaged with a 6 Ethiopian JR4 guide catheter and the stenosis in the mid segment was crossed with [employer] pressure wire. iFR measurement was made that came back insignificant at 0. 96. FINDINGS 1. Hemodynamics: Left ventricular end-diastolic pressure 8 mmHg. No pullback gradient across the ao rtic valve. 2. Coronary angiography: a. The left main coronary artery arose from the left sinus of Valsalva, gave rise to the left anteri or descending and left circumflex arteries and did not show any significant stenosis. b. The left anterior descending artery itself did not show any significant stenosis. The diagonal b ranch which is a small to medium caliber vessel showed 70% stenosis in the midsegment. c. The left circumflex artery showed 100% occlusion in the midsegment of a good caliber obtuse timo nal branch. d. The right coronary artery was a large and dominant vessel arising from the right sinus of Valsalv a that showed 50% stenosis in the midsegment there was physiologically insignificant based on IFR jillian surement of 0.96. INTERVENTION The left main coronary artery was engaged with a 6 Ethiopian XB 3.5 guide catheter. The occlusion in th e obtuse marginal branch of left circumflex artery was crossed with a 0.014 inch [employer] guide wire. Multiple inflations were then performed within the lesion using 2.5 x 15 mm Euphora balloon. Distal flow was suggestive of late presentation myocardial infarction consistent with patient's sympt oms duration of 2 to 3 days. The lesion was then treated with a 2.5 x 20 mm [employer] Promus Elite stent. Follow-up angiography showed resolution of the lesion with MARGARET II-III distal flow. P atient tolerated the procedure well. Hemostasis was achieved using Angio-Seal. There were no immedi ate complications MARGARET Flow MARGARET Flow (Pre-Intervention): MARGARET-0 MARGARET Flow (Post-Intervention): MARGARET-2 Conclusion 1. 100% occlusion involving obtuse marginal branch of left circumflex artery, culprit vessel for pat ient's STEMI with late presentation. Patient also had a 50% stenosis in the mid segment of large ginny iber right coronary artery that was physiologically insignificant based on IFR measurement of 0.96. 2. Successful PCI/drug-eluting stent placement to the obtuse marginal branch of left circumflex consuelo ry. Recommendations 1. Aspirin 325 mg daily for 1 month followed by 81 mg daily 2. Plavix 75 mg daily 3. Check 2D echo to assess LV systolic function 4. Cardiovascular risk factor modification Signed by : Gerson Tran, Electronically Approved : 10/13/2021 13:09:52
--- NOTE | 2021-10-13 15:52 | CARD ---
MR#: [id number] Date of Study: 10/13/2021 Ordering Physician: ANNIE MARIE, Referring Physician: Anish BOLANOS: Raymond Landers [facility] APPROVED REPORT EXAM: Two-dimensional and M-mode echocardiogram with Doppler and color Doppler. Other Information Quality : FairHR: 71bpm Rhythm : NSRTechnically limited study due to low windows. INDICATION STEMI RISK FACTORS Thyroid disease 2D DIMENSIONS Left Atrium(2D)5.7 (1.6-4.0cm)IVSd1.2 (0.7-1.1cm) Aortic Root(2D)3.4 (2.0-3.7cm)LVDd4.6 (3.9-5.9cm) LVOT Diameter1.9 (1.8-2.4cm)PWd1.3 (0.7-1.1cm) LA Wiaqul488 (18-58mL)LVDs2.8 (2.5-4.0cm) FS (%) 39.7 %SV67.1 ml LVEF(%)70.3 (>50%) Aortic Valve AoV Peak Mauro.105.1cm/sAoV VTI22.0cm AO Peak GR.4.4mmHgLVOT Peak Mauro.98.6cm/s AO Mean GR.3mmHgAVA (VMAX)2.56cm2 Mitral Valve MV E Ghsgawju33.6cm/sMV DECEL LOYA474ho MV A Skdfoicw73.9cm/sE/A Ratio0.9 Pulmonary Valve PV Peak Xryistjn442.6cm/s Tricuspid Valve TR P. Hqjlarzc457uq/sTR Peak Gr.21mmHg LEFT VENTRICLE The left ventricle is normal size. There is borderline to mild concentric left ventricular hypertroph y. The left ventricular systolic function is normal and the ejection fraction is within normal range. EF 55% Severe inferolateral and lateral hypokinesis. Otherwise, grossly normal wall motion. Transmit ral Doppler flow pattern is Grade I-abnormal relaxation pattern. No left ventricle thrombus noted on this study. There is no ventricular septal defect visualized. There is no left ventricular aneurysm. There is no mass noted in the left ventricle. RIGHT VENTRICLE The right ventricle is normal size. There is normal right ventricular wall thickness. The right ventr icular systolic function is normal. ATRIA The left atrium is mildly dilated. The right atrium size is normal. The interatrial septum is intact with no evidence for an atrial septal defect or patent foramen ovale as noted on 2-D or Doppler imagi ng. AORTIC VALVE The aortic valve is calcified but opens well. Doppler and Color Flow revealed no significant aortic r egurgitation. There is no significant aortic valvular stenosis. There is no aortic valvular vegetatio n. MITRAL VALVE The mitral valve is normal in structure and function. There is no evidence of mitral valve prolapse. There is no mitral valve stenosis. Doppler and Color Flow revealed no mitral valve regurgitation note d. TRICUSPID VALVE The tricuspid valve is normal in structure and function. Doppler and Color Flow revealed trace tricus pid regurgitation. There is no tricuspid valve prolapse or vegetation. There is no tricuspid valve st enosis. PULMONIC VALVE The pulmonary valve is normal in structure and function. Doppler and Color Flow revealed no pulmonic valvular regurgitation. There is no pulmonic valvular stenosis. GREAT VESSELS The aortic root is normal in size. The ascending aorta is normal in size. The pulmonary artery is nor mal. The IVC is mildly dilated. PERICARDIAL EFFUSION There is no pleural effusion. There is no evidence of significant pericardial effusion. Critical Notification Critical Value: No <Conclusion> The left ventricular systolic function is normal and the ejection fraction is within normal range. EF 55% Severe inferolateral and lateral hypokinesis. Otherwise, grossly normal wall motion. Signed by : Sidney Juarez, Electronically Approved : 10/13/2021 15:52:06
[2021-10-13] MEDS ORDERED: CARVEDILOL 3.125 MG TABLET. PO SCH (17:00)
[2021-10-13] MEDS ORDERED: GABAPENTIN 100 MG CAPSULE. PO SCH (21:00)
[2021-10-13] MEDS ORDERED: ATORVASTATIN CALCIUM 40 MG TABLET. PO SCH (21:00)
[2021-10-14] VITALS (12 sets, daily range): BP systolic 107–139; BP diastolic 47–70
[2021-10-14] MEDS: IV 1/2 NORMAL SALINE 1,000 ML IV SCH ×2 (04:31→10:00)
[2021-10-14] MEDS: LEVOTHYROXINE 100 MCG TABLET PO SCH (05:46)
[2021-10-14] MEDS: ASPIRIN ENTERIC COATED 325 MG TABLET.DR. PO SCH (08:31)
[2021-10-14] MEDS: CLOPIDOGREL BISULFATE 75 MG TABLET PO SCH (08:31)
--- NOTE | 2021-10-14 08:59 | PDOC ---
CARDIO Progress Notes Date and Time Date of Service 10/14/2021 Time of Evaluation 0810 Subjective Subjective: No Chest Pain, No shortness of breath, No Palpitations Vitals Vitals Vital Signs Date Time Temp Pulse Resp B/P (MAP) Pulse Ox O2 Delivery O2 Flow Rate FiO2 10/14/21 06:00 70 18 125/50 (75) 98 Room Air 10/14/21 04:00 98.0 98.0 10/14/21 04:00 2.0 Weight Weight [ ] Input and Output Intake and Output Intake and Output 10/14/21 07:00 Intake Total 4045 ml Output Total 75 ml Balance 3970 ml Intake Oral 1390 ml IV Total 2655 ml Output Urine Total 75 ml # Voids 7 # Bowel Movements 3 Laboratory Labs Laboratory Tests Test 10/13/21 09:15 Sodium Level 136 mmol/L (136-145) Potassium Level 4.2 mmol/L (3.5-5.1) Chloride Level 102 mmol/L (98-107) Carbon Dioxide Level 28 mmol/L (21-32) Anion Gap 6 (6-14) Blood Urea Nitrogen 27 mg/dL (8-26) Creatinine 1.6 mg/dL (0.7-1.3) Estimated GFR (Cockcroft-Gault) 41.3 Glucose Level 101 mg/dL (70-99) Calcium Level 8.2 mg/dL (8.5-10.1) Magnesium Level 2.1 mg/dL (1.8-2.4) Triglycerides Level 52 mg/dL (0-150) Cholesterol Level 117 mg/dL (0-200) LDL Cholesterol, Calculated 61 mg/dL (0-100) VLDL Cholesterol, Calculated 10 mg/dL (0-40) Non-HDL Cholesterol Calculated 71 mg/dL (0-129) HDL Cholesterol 46 mg/dL (40-60) Cholesterol/HDL Ratio 2.5 Thyroid Stimulating Hormone (TSH) 0.474 uIU/mL (0.358-3.74) Physical Exam HEENT: Neck Supple W Full Motion Chest: Symmetric LUNGS: Clear to Auscultation Heart: S1S2, RRR (SR) Abdomen: Soft N/T Extremities: No Edema, No Calf Tenderness Neurology: alert, oriented, follow commands Assessment Assessment 1. Acute inferolateral wall ST elevation myocardial infarction with probably late presentation based on significantly elevated initial troponin level of greater than 16 K. He was chest pain-free on admission but continued to have ST elevations on EKG. 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 He underwent successful PCI/drug-eluting stent placement. Distal flow was consistent with late presentation. He also had borderline significant stenosis of his right coronary artery that was physiologically insignificant based on IFR measurement. EF 55% Severe inferolateral and lateral hypokinesis per TTE 2. Hypertension: controlled 3. CKD: possibly stage 3 4. Hypothyroidism: on replacement per PCP 5. Presyncope: vasovagal episode. noted HR SB in the 30s resolved after atropin e. Maintaining SR but did have episodes of SB in the mid40s last night, no pauses Recommendations 1. Continue ASA and plavix. Cardiac rehab 2. Statin. DC coreg. Per RN was told he was not able to tolerate metoprolol in the past. Unable to tolerate BP meds at this time as he continues to have low end episodes on his BP. HBPM 3.Orthostatic readings. plan for MCOT 4. Anticipate DC today Justicifation of Admission Dx: Justifications for Admission: Justification of Admission Dx: Yes DORYS MAC APRN Oct 14, 2021 08:59
[2021-10-14] MEDS ORDERED: DOCUSATE SODIUM 100 MG CAPSULE. PO SCH (09:00)
[2021-10-14] MEDS ORDERED: ATOR40TA59 PO (09:02)
[2021-10-14] MEDS ORDERED: CLOP75TA PO (09:02)
[2021-10-14] MEDS ORDERED: ASPI325T11 PO (09:02)
--- NOTE | 2021-10-14 15:20 | DS ---
DATE OF DISCHARGE: 10/14/2021 HOSPITAL SUMMARY: The patient came in with 3 days of weakness, generalized fatigue and no cardiovascular symptoms. EKG showed acute ST elevation in the inferior leads and was taken to the laboratory monitor and a circumflex lesion was found. Angioplasty and stenting per Dr. Tran. Echocardiogram is pending at this time. Troponins are elevated consistent with myocardial injury. Cholesterol was low at 101 and LDL 61. Rest of chemistry is normal including TSH. He has done well post-cast, although with Coreg, he dropped his heart rate and beta milagros had to be stopped. He is comfortable being discharged and followed as an outpatient at this point. 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 OPERATIONS AND PROCEDURES: Cardiac catheterization, arteriograms, circumflex artery angioplasty and stent placement. COMPLICATIONS: None. CONSULTATION: Dr. Tran. DISPOSITION: Will take aspirin 81 mg, Plavix 75 mg daily. No beta milagros as he developed bradycardia and no statin needed as his LDL was 61 prior to medication. Office followup with Dr. Tran in 1-2 weeks. We will see him as needed and his prognosis is good. [facility] [place] DR: MONICA/emile TID: [id number]
== END 2021-10-14 11:38 | disposition home or self-care (01) | DRG 247 ==
LOC: ER 16:04 → 1 WEST ICU 16:27
PROVIDERS: ADMIT Family Medicine; ATTEND Family Medicine
PROC: 027034Z Dilation of Coronary Artery, One Artery with Drug-eluting Intraluminal Device, Percutaneous Approach (ICD-10-PCS; principal; 2021-10-12)
PROC: 4A023N7 Measurement of Cardiac Sampling and Pressure, Left Heart, Percutaneous Approach (ICD-10-PCS; 2021-10-12)
PROC: B2111ZZ Fluoroscopy of Multiple Coronary Arteries using Low Osmolar Contrast (ICD-10-PCS; 2021-10-12)
PROC: 4A033BC Measurement of Arterial Pressure, Coronary, Percutaneous Approach (ICD-10-PCS; 2021-10-12)
DX: I21.19 ST elevation (STEMI) myocardial infarction involving other coronary artery of inferior wall (principal); I12.9 Hypertensive chronic kidney disease with stage 1 through stage 4 chronic kidney disease, or unspecified chronic kidney disease; E03.9 Hypothyroidism, unspecified; I25.10 Atherosclerotic heart disease of native coronary artery without angina pectoris; N18.9 Chronic kidney disease, unspecified; Z79.899 Other long term (current) drug therapy; Z90.49 Acquired absence of other specified parts of digestive tract
CPT/HCPCS: 92941; 93458; 93571; 96374; 99285; G0269; 36415; 71045; 80048; 80053; 80061; 81001; 83690; 83735; 83880; 84443; 84484; 85025; 93005; 93306; 99152; 99153; C1725; C1769; C1894; J0583; J1644; J2250; J3010; J3490; Q9967; C1874; C8929; G0378